=== PATIENT | male | born 1950 ===

== ENCOUNTER 2017-07-11 13:12 | Emergency (ER) | payer SELFPAY ==
[2017-07-11 13:13] VITALS: BMI 25.5
--- NOTE | 2017-07-11 14:24 | ED PDOC ---
HPI: General Adult Time Seen by Provider: 07/11/17 14:06 Chief Complaint (Nursing): Weakness/Neurological Deficit Chief Complaint (Provider): shortness of breath, weakness, body aches History Per: Patient, Manager Ethics (Assistive Technology Trainer at bedside) Additional Complaint(s): 66-year-old male with no past medical history presents to emergency department with generalized body aches, weakness, chest pain, shortness of breath and dyspnea on exertion ongoing intermittently for about 2 months. Patient states these symptoms come and go. Patient states for the past few nights he has been unable to sleep secondary to body aches and pains. He has not taken anything for pain relief and he denies any associated fever or chills. He denies any recent travel. Patient denies any chest pain or SOB upon arrival. He states he usually gets out of breath when he is going up stairs. Past Medical History Reviewed: Historical Data, Nursing Documentation, Vital Signs Vital Signs: Last Vital Signs Temp 97.9 F 07/11/17 17:46 Pulse 83 07/11/17 17:46 Resp 19 07/11/17 17:46 BP 118/77 07/11/17 17:46 Pulse Ox 97 07/11/17 18:24 - Medical History PMH: HTN - Surgical History Surgical History: Coronary Stent Other surgeries: right foot surgery - Family History Family History: States: No Known Family Hx - Living Arrangements Living Arrangements: With Family - Social History Current smoker - smoking cessation education provided: No Alcohol: None - Allergies Allergies/Adverse Reactions: Allergies Allergy/AdvReac Type Severity Reaction Status Date / Time No Known Allergies Allergy Verified 07/11/17 13:15 Review of Systems ROS Statement: Except As Marked, All Systems Reviewed And Found Negative Constitutional: Negative for: Fever, Chills Cardiovascular: Positive for: Chest Pain. Negative for: Palpitations Respiratory: Positive for: Shortness of Breath, SOB with Exertion. Negative for : Wheezing Gastrointestinal: Negative for: Nausea, Vomiting, Abdominal Pain Genitourinary Male: Negative for: Dysuria Neurological: Negative for: Headache, Dizziness Physical Exam - Reviewed Nursing Documentation Reviewed: Yes Vital Signs Reviewed: Yes - Physical Exam Appears: Positive for: Well, Non-toxic, No Acute Distress Skin: Negative for: Rash Eye Exam: Positive for: Normal appearance, EOMI, PERRL Cardiovascular/Chest: Positive for: Regular Rate, Rhythm Respiratory: Positive for: Normal Breath Sounds. Negative for: Wheezing, Respiratory Distress Gastrointestinal/Abdominal: Positive for: Soft. Negative for: Tenderness, Distended, Guarding, Rebound Back: Negative for: L CVA Tenderness, R CVA Tenderness Extremity: Positive for: Normal ROM. Negative for: Pedal Edema, Calf Tenderness Neurologic/Psych: Positive for: Alert, Oriented - Laboratory Results Result Diagrams: 07/11/17 14:30 07/11/17 16:10 - ECG Interpretation Of ECG: NSR 79 bpm, no acute finding, reviewed by PA and ED attending. O2 Sat by Pulse Oximetry: 97 Pulse Ox Interpretation: Normal - Other Rad CXR X-Ray: Interpreted by Me, Viewed By Me X-Ray Interpretation: no acute finding CT chest X-Ray: Read By Radiologist X-Ray Interpretation: normal, no PE Medical Decision Making Medical Decision Makin66 year old with chest pain, SOB and weakness/body aches. Plan: CBC CMP Trop BNP D-dimer CXR EKG IVF D-dimer elevated. CT chest ordered. CT chest is negative for PE. Patient feels much better after fluids administered. He is aware of all diagnostic testing results, all questions answered. Patient was instructed to take tylenol or motrin as needed for pain and to drink plenty of fluids. He was advised to follow up with clinic in 2-3 days. Disposition - Clinical Impression Clinical Impression: Dyspnea on exertion, Body aches - Patient ED Disposition Is Patient to be Admitted: No Counseled Patient/Family Regarding: Studies Performed, Diagnosis, Need For Followup - Disposition Referrals: [facility] [Outside] Disposition: Routine/Home Disposition Time: 18:27 Condition: STABLE Additional Instructions: Ibuprofen as needed for pain. Plenty of fluids. Follow-up with clinic in 2-3 days or return to ED any time if acutely worse. Instructions: Dyspnea (ED), Musculoskeletal Pain (ED) Forms: [employer] (Namibian) Print Language: HEBREW Results - Lab Results Lab Results: 07/11/17 07/11/17 07/11/17 16:10 14:30 14:30 WBC 6.2 RBC 4.81 Hgb 15.2 Hct 44.0 MCV 91.5 MCH 31.6 H MCHC 34.6 RDW 12.8 Plt Count 218 MPV 8.6 Neut % (Auto) 50.4 Lymph % (Auto) 36.5 Mckinley % (Auto) 9.7 Eos % (Auto) 2.7 Baso % (Auto) 0.7 Neut # 3.1 Lymph # 2.3 Mckinley # 0.6 Eos # 0.2 Baso # 0.0 D-Dimer, Quantitative 250 H Sodium 139 Potassium 3.7 Chloride 106 Carbon Dioxide 23 Anion Gap 14 BUN 15 Creatinine 0.7 L Est GFR ( Amer) > 60 Est GFR (Non-Af Amer) > 60 Random Glucose 103 Calcium 9.3 Total Bilirubin 0.7 AST 81 H ALT 74 H D Alkaline Phosphatase 74 Troponin I < 0.0120 NT-Pro-B Natriuret Pep 40.7 Total Protein 6.8 Albumin 4.1 Globulin 2.7 Albumin/Globulin Ratio 1.5
[2017-07-11] MEDS ORDERED: Sodium Chloride 0.9% 1,000 ML IV STA ×2 (14:28→15:35)
[2017-07-11 14:57] LABS: BASO % 0.7 % (0.0-2.0); EOS # 0.2 K/uL (0.0-0.7); EOS % 2.7 % (0.0-4.0); LYMPH # 2.3 K/uL (1.0-4.3); LYMPH % 36.5 % (20.0-40.0); MEAN CELL VOLUME 91.5 fl (80.0-94.0); MEAN CORPUSCULAR HEMOGLOBIN 31.6 pg (27.0-31.0); MEAN CORPUSCULAR HGB CONC 34.6 g/dL (33.0-37.0); MEAN PLATELET VOLUME 8.6 fl (7.2-11.7); MONO # 0.6 K/uL (0.0-0.8); MONO % 9.7 % (0.0-10.0); NEUT # 3.1 K/uL (1.8-7.0); NEUT % 50.4 % (50.0-75.0); NRBC % 0.1 % (0.0-0.0); RED CELL DISTRIBUTION WIDTH 12.8 % (11.5-14.5); WHITE BLOOD COUNT 6.2 K/uL (4.8-10.8)
--- NOTE | 2017-07-11 16:17 | RAD ---
HISTORY: SOB, chest pain COMPARISON: Chest radiographs 09/12/2016. FINDINGS: LUNGS: No active pulmonary disease. Calcified granuloma is again seen the lateral mid left lung zone. PLEURA: No significant pleural effusion identified, no pneumothorax apparent. Right hemidiaphragm elevation is appreciate of indeterminate etiology. CARDIOVASCULAR: Normal. OSSEOUS STRUCTURES: No significant abnormalities. VISUALIZED UPPER ABDOMEN: Normal. OTHER FINDINGS: None. IMPRESSION: No acute infiltrate or pleural effusion. Elevated right hemidiaphragm is appreciated of indeterminate etiology. Calcified granuloma again seen the lateral portion of the mid left lung zone once again.
[2017-07-11 16:56] LABS: ALB/GLOB RATIO 1.5 (1.0-2.1); ALKALINE PHOSPHATASE 74 U/L (38-126); ALT/SGPT 74 U/L (21-72); AST/SGOT 81 U/L (17-59); BILIRUBIN,TOTAL 0.7 mg/dl (0.2-1.3); BLOOD UREA NITROGEN 15 mg/dl (9-20); CALCIUM 9.3 mg/dL (8.4-10.2); CARBON DIOXIDE 23 mmol/L (22-30); CHLORIDE 106 mmol/L (98-107); GFR AFRICAN-AMERICAN > 60; GLUCOSE,RANDOM 103 mg/dL (75-110); POTASSIUM 3.7 MMOL/L (3.6-5.0); SODIUM 139 mmol/l (132-148); TOTAL PROTEIN 6.8 G/DL (6.3-8.2)
[2017-07-11] MEDS ORDERED: Iodixanol 320 MG/ML 100 ML BOTTLE IV ONE (16:59)
[2017-07-11] MEDS ORDERED: Sodium Chloride 0.9% 50 ML IV ONE (16:59)
[2017-07-11 17:47] VITALS: BP 118/77; PULSE 83; RESP 19; TEMP 97.9
--- NOTE | 2017-07-11 18:15 | CT ---
PROCEDURE: CT Chest with contrast (Pulmonary Angiogram) HISTORY: Chest pain, shortness of breath and dyspnea on exertion COMPARISON: None available. TECHNIQUE: Axial computed tomography images were obtained of the chest in the pulmonary arterial phase of enhancement. Coronal and sagittal reformatted images were created and reviewed. Maximum intensity projection (MIP) reconstructed images in the following planes: Axial projection only Intravenous contrast dose: 80 cc Visipaque 320 Mean Hounsfield unit values in the main pulmonary artery: 342.77 Radiation dose: Total exam DLP = 375.35 mGy-cm. This CT exam was performed using one or more of the following dose reduction techniques: Automated exposure control, adjustment of the mA and/or kV according to patient size, and/or use of iterative reconstruction technique. FINDINGS: PULMONARY ARTERIES: Unremarkable. No pulmonary embolism. AORTA: No acute findings. No thoracic aortic aneurysm. LUNGS: Dependent atelectasis at the lung bases right greater than left. No suspicious pulmonary nodules, masses or infiltrates. Calcified granuloma left upper lobe 1 cm PLEURAL SPACES: Unremarkable. No effusion or pneuomothorax. HEART: Unremarkable. No cardiomegaly. No significant pericardial effusion. LYMPH NODES: No lymphadenopathy. BONES, CHEST WALL: Unremarkable. No fracture or destructive lesion OTHER FINDINGS: Unremarkable. IMPRESSION: Unremarkable CT pulmonary angiogram. No pulmonary embolus.
[2017-07-11 18:22] VITALS: O2SAT 97
--- NOTE | 2017-07-12 08:31 | CARD ---
APPROVED REPORT EKG Measurement Heart [id number] <Conclusion> Normal sinus rhythm Normal ECG
== END 2017-07-11 18:37 | disposition home or self-care (01) ==
LOC: H.ER 13:12
DX: R06.09 Other forms of dyspnea (principal); M79.1 Myalgia
CPT/HCPCS: 71010; 71275; 80053; 83880; 84484; 85025; 85378; 93005; 99285; J7040; Q9967

== ENCOUNTER 2017-07-13 12:13 | Emergency (ER) | payer OTHER ==
[2017-07-13 12:13] VITALS: BMI 25.5
[2017-07-13 12:20] VITALS: BP 108/75; PULSE 80; RESP 16; TEMP 97.5; O2SAT 99
--- NOTE | 2017-07-13 12:32 | ED PDOC ---
HPI: Headache Time Seen by Provider: 07/13/17 12:22 Chief Complaint (Nursing): Dizziness/Lightheaded Chief Complaint (Provider): Headache History Per: Patient History/Exam Limitations: no limitations Onset/Duration Of Symptoms: Days (2) Pain Scale Rating Of: 7 Additional Complaint(s): Patient is a 66 y/o male presenting to the emergency department for a headache ongoing for two days, rated a 7/10 in severity. Reports that the headache started after receiving a chest CT scan with IV contrast on 07/11/17. He denies taking any medication for relief and is requesting guidance for pain management. Denies vision changes, dizziness, nausea, vomiting, chills, fever, or other complaints. PCP: Rosita Munoz Past Medical History Reviewed: Historical Data, Nursing Documentation, Vital Signs Vital Signs: Last Vital Signs Temp 97.5 F L 07/13/17 12:16 Pulse 80 07/13/17 12:16 Resp 16 07/13/17 12:16 BP 108/75 07/13/17 12:16 Pulse Ox 99 07/13/17 12:16 - Medical History PMH: No Chronic Diseases - Surgical History Surgical History: Coronary Stent - Family History Family History: States: No Known Family Hx - Living Arrangements Living Arrangements: With Family - Social History Current smoker - smoking cessation education provided: No Ex-Smoker (has not smoked in the last 12 months): No Alcohol: None Drugs: Denies - Home Medications Home Medications: Ambulatory Orders Medication Instructions Recorded Ibuprofen [Motrin Tab] 800 mg PO Q8 PRN #20 tab 07/13/17 - Allergies Allergies/Adverse Reactions: Allergies Allergy/AdvReac Type Severity Reaction Status Date / Time No Known Allergies Allergy Verified 07/11/17 13:15 Review of Systems ROS Statement: Except As Marked, All Systems Reviewed And Found Negative Constitutional: Negative for: Fever, Chills Eyes: Negative for: Vision Change Cardiovascular: Negative for: Chest Pain Gastrointestinal: Negative for: Nausea, Vomiting Neurological: Positive for: Headache. Negative for: Weakness, Confusion, Seizures, Altered Mental Status, Dizziness Physical Exam - Reviewed Nursing Documentation Reviewed: Yes Vital Signs Reviewed: Yes - Physical Exam Appears: Positive for: Well, Non-toxic, No Acute Distress Head Exam: Positive for: ATRAUMATIC, NORMAL INSPECTION, NORMOCEPHALIC Skin: Positive for: Normal Color, Warm, Dry. Negative for: Rash Eye Exam: Positive for: Normal appearance, EOMI, PERRL Neck: Positive for: Normal Cardiovascular/Chest: Positive for: Regular Rate, Rhythm Respiratory: Positive for: Normal Breath Sounds. Negative for: Accessory Muscle Use, Respiratory Distress Extremity: Positive for: Normal ROM. Negative for: Pedal Edema Neurologic/Psych: Positive for: Alert, lamination inspector II-XII (grossly intact), Oriented (x3 ). Negative for: Motor/Sensory Deficits, Aphasia, Facial Droop - ECG O2 Sat by Pulse Oximetry: 99 (RA) Pulse Ox Interpretation: Normal Medical Decision Making Medical Decision Making: Time: 12:26 Initial impression: 66 y/o male with headache, no neuro deficits noted. Initial plan: * Motrin 600 mg PO * Pain management counseling 12:30 Patient was seen in ED 2 days ago and had extensive work up for weakness and shortness of breath. hardy does not want any workup at this time and is interested in receiving information regarding what he can take for headache. Motrin dose given in ED which helped with headache. Patient will be discharged with Rx for Motrin. Counseling was provided and all questions were answered regarding symptoms and need for follow up with referred clinic. There is agreement to discharge plan. Return if symptoms persist or worsen. Scribe Attestation: Documented by Mahnaz Meadows, acting as a scribe for GAMAL Solorzano. Provider Scribe Attestation: All medical record entries made by the Scribe were at my direction and personally dictated by me. I have reviewed the chart and agree that the record accurately reflects my personal performance of the history, physical exam, medical decision making, and the department course for this patient. I have also personally directed, reviewed, and agree with the discharge instructions and disposition. Disposition - Clinical Impression Clinical Impression: Headache - Patient ED Disposition Is Patient to be Admitted: No Doctor Will See Patient In The: Office Counseled Patient/Family Regarding: Diagnosis, Need For Followup, Rx Given - Disposition Referrals: [facility] [Outside] Disposition: Routine/Home Disposition Time: 12:43 Condition: STABLE Additional Instructions: Take rx meds as directed as needed for headache. Drink plenty of water. Follow up with clinic in 2-3 days or return any time if worse. Prescriptions: Ibuprofen [Motrin Tab] 800 mg PO Q8 PRN #20 tab PRN Reason: Pain, Moderate (4-7) Instructions: General Headache (ED) Forms: [employer] (Vietnamese)
== END 2017-07-13 13:12 | disposition home or self-care (01) ==
LOC: H.ER 12:13
DX: R51 Headache (principal); Z95.5 Presence of coronary angioplasty implant and graft